=== PATIENT | male | born 1965 | race Caucasian/White ===

== ENCOUNTER 2016-08-13 23:43 | Emergency (ER) | payer BC ==
[~2016-08-13] VITALS: Ht 177.8 cm; Wt 84.0 kg
[~2016-08-13 23:43] MED LIST: LEVO-217 PO
[2016-08-13 23:48] VITALS: TEMP 36.4; O2SAT 94; Ht 177.8 cm; Wt 84.0 kg
[2016-08-14] MEDS ORDERED: SODIUM CHLORIDE 0.9% 1000ML 1,000 ML IV STA ×2 (00:14→01:41)
[2016-08-14 00:23] LABS: HEMATOCRIT 44.6 % (42-52); MEAN CELL VOLUME 89.2 fL (80-100); MEAN CORPUSCULAR HEMOGLOBIN 30.4 pg (25-34); MEAN CORPUSCULAR HGB CONC 34.1 g/dl (32-36); MEAN PLATELET VOLUME 10.2 fL (7.4-10.4); PLATELET COUNT 153 K/uL (130-400); WHITE BLOOD COUNT 5.49 K/uL (4.8-10.8)
[2016-08-14 00:41] LABS: ALT/SGPT 51 U/L (12-78); BLOOD UREA NITROGEN 13 mg/dl (7-18); BUN/CREATININE RATIO 12.6 (10-20); CALCIUM 8.3 mg/dl (8.5-10.1); CARBON DIOXIDE 27 mmol/L (21-32); CHLORIDE 106 mmol/L (98-107); GLUCOSE 104 mg/dl (70-99); MAGNESIUM 2.4 mg/dl (1.8-2.4); POTASSIUM 3.8 mmol/L (3.5-5.1); SODIUM 141 mmol/L (136-145)
[2016-08-14 00:52] LABS: ALB/GLOB RATIO 0.9 (0.9-2); ALKALINE PHOSPHATASE 89 U/L (45-117); AST/SGOT 40 U/L (15-37)
[2016-08-14 01:05] LABS: BASO % 0.2 %; BASO ABS # 0.01 K/uL (0-0.2); COMPLETE YES; EOS % 1.8 %; LYMPH % 59.6 %; LYMPH ABS # 3.27 K/uL (1.2-3.4); MONO % 12.4 %
[2016-08-14 01:55] LABS: MANUAL MICROSCOPIC REQUIRED? NO; REVIEW REQ? NO; URINE APPEARANCE CLOUDY (CLEAR); URINE BILIRUBIN NEG (NEG); URINE COLOR DK YELLOW; URINE NITRITE NEG (NEG); URINE SPECIFIC GRAVITY 1.027 (1.000-1.030); UROBILINOGEN NEG (NEG); ZZUR CULT IF INDIC CLEAN CATCH NO
--- NOTE | 2016-08-14 02:38 | EMERGENCY ROOM VISIT NOTE ---
History First contact with patient: 00:03 Chief Complaint: SYNCOPE Stated Complaint: SYNCOPE, NEAR SYNCOPE Nursing Triage Summary: Patient presents to B05 via wheelchair from room B06 in the ED. Patient reports that he has had "a headache, sore throat, lower back pain, diarrhea, a runny nose, a productive cough (yellow sputum)" for three days. Patient has been taking Nyquil for his symptoms and has been using Afrin for his nasal congestion. Patient was here with his son who is an ER patient. While son was getting his IV inserted and his blood drawn, this patient passed out onto the bed. No injury sustained. After waking, this patient felt faint two more times with mild nausea. Skin pale and cool. Patient requested to be seen as a patient. History of Present Illness The patient is a 50 year old male who presents to the Emergency Department by private vehicle. He actually presents emergency department to be with his son who is sick with upper respiratory like symptoms. The patient was watching his son have an IV placed when he became diaphoretic and passed out. He did not fall to ground. He did not strike his head. He was unconscious for a few seconds. He reportedly awoke and felt better. The patient has been sick for the past 4 days. He has had a headache as well as achiness and chills. He has had fevers as well. He isn't utilizing appg-rog-[id number] medications with minimal relief of symptoms. The patient had a cough as well as nausea. He has not vomited. A family member was sick with similar symptoms recently. The patient rates his current discomfort as a 3/10. He denies any current headaches , dizziness, blurry vision, double vision, neck pain/stiffness, chest pain, palpitations, shortness of breath, nausea, vomiting, or dysuria. Review of Systems A complete 10-point Review of Systems was discussed with the patient, with pertinent positives and negatives listed in the History of Present Illness. All remaining Review of Systems questions can be considered negative unless otherwise specified. Social History Smoking Status: Never Smoker Smokeless Tobacco Use: No Alcohol Use: none Drug Use: none Marital Status: Housing Status: lives with family Occupation Status: employed Current/Historical Medications Scheduled Levothyroxine (Levothroid), 88 MCG PO DAILY Allergies Coded Allergies: Hydroxyzine (Unverified Allergy, Intermediate, SEVERE BRADYCARDIA, 08/14/16) Physical Exam Vital Signs Date Time Temp Pulse Resp B/P Pulse Ox O2 Delivery O2 Flow Rate FiO2 08/14/16 02:52 64 18 99/54 97 08/14/16 01:44 64 18 102/60 100 Room Air 08/14/16 00:25 55 08/13/16 23:48 52 16 89/66 94 Room Air 51 100/65 62 93/76 08/13/16 23:48 94 Room Air 08/13/16 23:48 36.4 53 16 99/68 94 Room Air Pain Rating (0-10): 4 Physical Exam VITAL SIGNS - Vital signs and nursing notes were reviewed. GENERAL - 50-year-old male appearing his stated age who is in no acute distress. Communicates well with provider and answers questions appropriately. HEAD - NC/AT. EYES - PERRL with EOMI bilaterally. Sclera anicteric. Palpebral conjunctiva pink and moist with no injection noted. EARS - No deformities of external structures noted on gross examination bilaterally. No pain elicited with palpation of the tragus bilaterally. External auditory canals without discharge or otorrhea. Tympanic membranes pearly lou without retraction or bulging. No fluid or purulent material visualized behind the TM. Handle of malleus, umbo, cone of light, pars tensa/ flaccid all easily visualized. NOSE - Midline and without cyanosis. No epistaxis or purulent drainage noted. Septum midline without deviation or septal hematoma noted. MOUTH/OROPHARYNX - Without perioral cyanosis. Buccal mucosa pink and moist and without leukoplakia. Tongue midline with equal elevation of palate bilaterally. No tonsillar hypertrophy, erythema, or exudates noted. Good dentition noted. NECK - Neck with FROM. Supple to palpation. No nuchal rigidity. LUNGS - Chest wall symmetric without accessory muscle use, intercostals retractions, or central cyanosis. Normal vesicular breath sounds CTA B/L. No wheezes, rales, or rhonchi appreciated. CARDIAC - RRR with S1/S2. No murmur, rubs, or gallops appreciated. No reproducible tenderness to palpation appreciated over the anterior chest wall. ABDOMEN - Abdominal contour flat without pulsations or visible masses. BS normoactive all four quadrants. No tenderness, palpable masses, hepatosplenomegaly, or ascites noted. EXTREMITIES - No clubbing or peripheral cyanosis. No pretibial edema present. +3 /5 radial and dorsalis pedis pulses palpated throughout. +5/5 strength noted in UE/LE bilaterally. NEUROLOGIC - Cranial nerves II through XII grossly intact. Sensory intact to light touch throughout. PSYCH - A&Ox3 and cooperates fully with examiner. Pt is very pleasant and interacts well with examiner. Medical Decision & Procedures ER Provider Diagnostic Interpretation: X-ray of the chest was obtained and demonstrates no acute cardiopulmonary processes provide interpretation. Radiologist's impression unavailable at the time of dictation. Laboratory Results 08/14/16 00:00 Red Blood Count 5.00, Mean Corpuscular Volume 89.2, Mean Corpuscular Hemoglobin 30.4, Mean Corpuscular Hemoglobin Concent 34.1, Mean Platelet Volume 10.2, Neutrophils (%) (Auto) 26.0, Lymphocytes (%) (Auto) 59.6, Monocytes (%) (Auto) 12.4, Eosinophils (%) (Auto) 1.8, Basophils (%) (Auto) 0.2, Neutrophils # (Auto ) 1.43, Lymphocytes # (Auto) 3.27, Monocytes # (Auto) 0.68, Eosinophils # (Auto ) 0.10, Basophils # (Auto) 0.01 08/14/16 00:00 Test 08/14/16 00:00 08/14/16 00:20 08/14/16 00:25 08/14/16 01:41 White Blood Count 5.49 K/uL (4.8-10.8) Red Blood Count 5.00 M/uL (4.7-6.1) Hemoglobin 15.2 g/dL (14.0-18.0) Hematocrit 44.6 % (42-52) Mean Corpuscular Volume 89.2 fL (80-100) Mean Corpuscular Hemoglobin 30.4 pg (25-34) Mean Corpuscular Hemoglobin Concent 34.1 g/dl (32-36) Platelet Count 153 K/uL (130-400) Mean Platelet Volume 10.2 fL (7.4-10.4) Neutrophils (%) (Auto) 26.0 % Lymphocytes (%) (Auto) 59.6 % Monocytes (%) (Auto) 12.4 % Eosinophils (%) (Auto) 1.8 % Basophils (%) (Auto) 0.2 % Neutrophils # (Auto) 1.43 K/uL (1.4-6.5) Lymphocytes # (Auto) 3.27 K/uL (1.2-3.4) Monocytes # (Auto) 0.68 K/uL (0.11-0.59) Eosinophils # (Auto) 0.10 K/uL (0-0.5) Basophils # (Auto) 0.01 K/uL (0-0.2) RDW Standard Deviation 40.4 fL (36.4-46.3) RDW Coefficient of Variation 12.6 % (11.5-14.5) Immature Granulocyte % (Auto) 0.0 % Immature Granulocyte # (Auto) 0.00 K/uL (0.00-0.02) Red Blood Cell Morphology Unremarkable Anion Gap 8.0 mmol/L (3-11) Est Creatinine Clear Calc Drug Dose 91.3 ml/min Estimated GFR () 101.3 Estimated GFR (Non- 87.4 BUN/Creatinine Ratio 12.6 (10-20) Calcium Level 8.3 mg/dl (8.5-10.1) Magnesium Level 2.4 mg/dl (1.8-2.4) Total Bilirubin 0.6 mg/dl (0.2-1) Aspartate Amino Transf (AST/SGOT) 40 U/L (15-37) Alanine Aminotransferase (ALT/SGPT) 51 U/L (12-78) Alkaline Phosphatase 89 U/L (45-117) Total Creatine Kinase 126 U/L (39-308) Creatine Kinase MB < 0.5 ng/ml (0.5-3.6) Creatine Kinase MB Ratio (0-3.0) Total Protein 7.9 gm/dl (6.4-8.2) Albumin 3.8 gm/dl (3.4-5.0) Globulin 4.1 gm/dl (2.5-4.0) Albumin/Globulin Ratio 0.9 (0.9-2) Lipase 202 U/L (73-393) Thyroid Stimulating Hormone (TSH) 4.480 uIu/ml (0.300-4.500) Bedside Troponin I 0.000 ng/ml (0-0.045) Influenza Type A Antigen POS for Influ A (NEG) Influenza Type B Antigen Neg for Influ B (NEG) Urine Color DK YELLOW Urine Appearance CLOUDY (CLEAR) Urine pH 5.0 (4.5-7.5) Urine Specific [place] 1.027 (1.000-1.030) Urine Protein NEG (NEG) Urine Glucose (UA) NEG (NEG) Urine Ketones NEG (NEG) Urine Occult Blood NEG (NEG) Urine Nitrite NEG (NEG) Urine Bilirubin NEG (NEG) Urine Urobilinogen NEG (NEG) Urine Leukocyte Esterase NEG (NEG) Urine WBC (Auto) 1-5 /hpf (0-5) Urine RBC (Auto) 0-4 /hpf (0-4) Urine Hyaline Casts (Auto) 10-30 /lpf (0-5) Urine Epithelial Cells (Auto) 10-20 /lpf (0-5) Urine Bacteria (Auto) NEG (NEG) Medications Administered Medications (Trade) Dose Ordered Sig/David Route Start Time Stop Time Status Last Admin Dose Admin Sodium Chloride 1,000 ml @ 999 mls/hr Q1H1M STAT IV 08/14/16 00:14 08/14/16 01:14 DC 08/14/16 00:14 999 MLS/HR Sodium Chloride (Nss 1000ml) 1,000 ml @ 999 mls/hr Q1H1M STAT IV 08/14/16 01:41 08/14/16 02:41 DC 08/14/16 01:43 999 MLS/HR Procedure Patient was placed on the campus monitor and monitored throughout the entire extent of their stay. In addition, the patient's pulse oximetry was monitored throughout the entire stay. Any abnormalities or aberrancies were addressed appropriately. ECG Indication: syncope Rate (beats per minute): 57 Rhythm: sinus bradycardia Findings: no acute ischemic change, no ectopy Change: no significant change (from 01/30/2014.) ED Course Patient was seen and evaluated by myself. Orthostatic vital signs were obtained. Labs were drawn, saline lock in place. EKG chest x-rays were obtained. The patient was hydrated with a 2000 mL normal saline bolus. Laboratory results demonstrate no acute leukocytosis, worrisome anemia, or bandemia. The patient has no significant electrolyte abnormalities. Cardiac enzymes were negative. Troponin is negative. EKG and chest x-rays above. Influenza A was positive. The patient was reevaluated and reports feeling much better at this time. The patient was encouraged to follow up with his primary care provider from today's visit. He will utilize symptomatically management for his ongoing symptoms of influenza. He will return for any changing or worsening symptoms. Patient discharged home in good condition. Medical Decision Given the patient's presentation and stated complaints, I did elect to perform the above-mentioned workup. The patient has been sick for the last 4 days. He has no fever at this point. The patient had a syncopal episode which sounds more vasovagal in nature after watching his son have an IV placed. The patient did interestingly test positive for influenza A as well. His chest x-ray and cardiac enzymes are negative. He felt much better after IV fluid hydration. The patient is outside the window for treatment with Tamiflu. He will continue symptomatically management. He'll follow-up with his primary care provider from today's visit. He will return for any changing or worsening symptoms. Patient discharged home afebrile and in good condition. In the evaluation and treatment of this patient, the following differential diagnoses were considered: Pneumonia, bronchitis, viral URI, LA, ASC, Dysrhythmia, Angina, Mediastinitis, GERD, Esophagitis, PE, Pneumonia, Bronchitis , Costochondritis, Rib Fracture, Zoster. Impression Primary Impression: Vasovagal syncope Additional Impression: Influenza A Departure Information Dispostion Home / Self-Care Condition GOOD Referrals Sukhjinder Hartman M.D. (PCP) Patient Instructions A Signature Page, ED Influenza Ch, ED Syncope Vasovagal, [facility] Additional Instructions You have been seen in the emergency department today for vasovagal syncope and influenza A. Drink plenty of fluids and stay well hydrated. For pain control, you can use the following [id number] medicines (if >12 yo): - Regular strength (325mg/tab) Tylenol (acetaminophen) 2 tabs every 4-6 hours as needed. Do not exceed 12 tablets in a 24 hour period. Avoid taking more than 4 grams (4000 mg) of Tylenol per day. This includes any other sources of acetaminophen you may take on a regular basis. - Regular strength (200 mg/tab) Advil (ibuprofen) 1-2 tabs every 4-6 hours as needed. Do not exceed a dose of 3200 mg per day. Please follow-up with your primary care provider from today's visit. Return for any changing or worsening symptoms.
[2016-08-14 02:52] VITALS: BP 99/54; PULSE 64; O2SAT 97
--- NOTE | 2016-08-14 08:13 | DIAGNOSTIC IMAGING REPORT ---
CHEST ONE VIEW PORTABLE HISTORY: syncope COMPARISON: None. FINDINGS: The heart is mildly enlarged. There are slight elevation of the right hemidiaphragm. No focal lung consolidations to suggest pneumonia. No evidence for pulmonary edema. No pleural effusions. No pneumothorax. There is a 5 mm nodule within the left lateral lung base. IMPRESSION: 1. Mild cardiomegaly. 2. Slight elevation of the right hemidiaphragm. 3. A 5 mm nodule at the left lateral lung base. This favors a calcified granuloma given the density. Follow-up nonemergent chest CT can be performed for confirmation on outpatient basis. Electronically signed by: Michael Granados M.D. 08/14/2016 8:11 AM Dictated Date/Time: 08/14/2016 8:09 AM
== END 2016-08-14 02:53 | disposition home or self-care (01) ==
LOC: C.EDB 23:54
DX: R55 Syncope and collapse (principal); J11.1 Influenza due to unidentified influenza virus with other respiratory manifestations

== ENCOUNTER → 2016-08-15 | Outpatient (CLI) | payer BC ==
[~2016-08-15] MED LIST changes: +LEVO88TA3 PO
== END | disposition home or self-care (01) ==
LOC: C.LABSPEC 17:00
PROVIDERS: ATTEND Podiatrist Primary Podiatric Medicine
DX: B35.1 Tinea unguium (principal)

== ENCOUNTER → 2016-12-01 | Outpatient (CLI) | payer BC ==
--- NOTE | 2016-12-01 10:43 | DIAGNOSTIC IMAGING REPORT ---
RIGHT HAND 3 VIEWS CLINICAL HISTORY: Right hand pain. FINDINGS: 3 views of the right hand are obtained. No prior studies are available for comparison at the time of dictation. The skeletal structures are well mineralized. There is contour irregularity of the fifth metacarpal, possibly related to remote trauma. No acute fracture is seen. The joint spaces of the hand are well-maintained. The overlying soft tissues are within normal limits. IMPRESSION: No acute bony abnormality is seen in the right hand. Electronically signed by: Tevin West M.D. 12/01/2016 10:41 AM Dictated Date/Time: 12/01/2016 10:31 AM
== END | disposition home or self-care (01) ==
LOC: C.RDSM 12:24
PROVIDERS: ATTEND Physician Assistant
DX: M79.641 Pain in right hand (principal)

== ENCOUNTER 2017-04-09 13:16 | Emergency (ER) | payer BC ==
[~2017-04-09] VITALS: Ht 179.1 cm; Wt 85.5 kg
[~2017-04-09 13:16] MED LIST changes: -LEVO88TA3 PO
[2017-04-09 13:34] VITALS: TEMP 36.8; Ht 179.1 cm; Wt 85.5 kg
[2017-04-09] MEDS ORDERED: LEVO88TA3 PO (13:56)
--- NOTE | 2017-04-09 14:00 | EMERGENCY ROOM VISIT NOTE ---
ED Visit Note First contact with patient: 13:41 CHIEF COMPLAINT: knee pain HISTORY OF PRESENT ILLNESS: This 51-year-old male patient presents to the emergency department ambulatory after sustaining an injury to the left knee when he started doing squats a few weeks ago and noticed some mild left knee pain but this pain significantly worsened yesterday. The patient states that he was at the [facility] [employer] football game and walking around a lot. He states that he also has plantar fasciitis in the right foot and this causes an antalgic gait. He denies any falls and does not recall any specific injury. The patient denies any other injuries besides their knee. The patient denies swelling or bruising. There is pain over the medial aspect. They rate the pain as sharp and 8/10. The patient states they are able to walk on it. No numbness or tingling. No previous injuries to this knee. No ankle, foot or hip pain. REVIEW OF SYSTEMS: A 6 system review of systems was completed with positives and pertinent negatives listed in the HPI. ALLERGIES: Hydroxyzine MEDICATIONS: Levothyroxine PMH: Hypothyroidism, pituitary tumor SOCIAL HISTORY: The patient lives locally. He does not smoke PHYSICAL EXAM: Vital Signs: Reviewed Nurse's notes, vital signs stable. GENERAL : As a 51-year-old male, no acute distress, but appears in pain, well-developed , well-nourished. MENTAL STATUS: Alert, oriented to person place and time, and cooperative. MUSCULOSKELETAL: The left knee is not swollen. There is no ecchymosis. There is no joint effusion present. The patient is tender over the medial aspect. There is medial joint line tenderness. The patella does not subluxate. Range of motion is intact. Strength of the quads and hamstrings is 5/ 5. Heidi's is negative. Aisha's and Anterior Drawer tests are negative for obvious laxity. There is negative for obvious laxity with varus and valgus stressing. The foot and toes are warm and well-perfused. Dorsalis pedis pulse 2+. Sensation to pain and light touch is intact. Capillary refill less than 2 seconds. EMERGENCY DEPARTMENT COURSE: I examined the patient. The patient refused x- rays. I advised the patient that I could not guarantee that his insurance company would cover an emergent MRI of the knee as our treatment outcome would not likely change even if there was a meniscal or ligamentous tear. He would rather not risk the chance of a large bill. The patient had knowledge his understanding and will follow-up with orthopedics. The patient was placed in a knee immobilizer under my direction and the position was satisfactory. The patient was instructed on the use of crutches. The patient was discharged home in good condition. Current/Historical Medications Scheduled Levothyroxine Sodium (Levothyroxine Sodium), 88 MCG PO DAILY Allergies Coded Allergies: Hydroxyzine (Unverified Allergy, Intermediate, SEVERE BRADYCARDIA, 04/09/17) Vital Signs Date Time Temp Pulse Resp B/P (MAP) Pulse Ox O2 Delivery O2 Flow Rate FiO2 04/09/17 14:15 57 109/72 96 04/09/17 13:34 36.8 69 20 126/76 95 Room Air Departure Information Impression Primary Impression: Knee pain Dispostion Home / Self-Care Condition GOOD Referrals Sukhjinder Hartman M.D. (PCP) Carlos Dinh M.D. Patient Instructions Knee Pain, Meniscus Probs [place], [facility] Additional Instructions Motrin 600 mg every 6-8 hours for moderate pain Ice frequently over the next 24-48 hours Wear the immobilizer and use crutches until seen by orthopedics Contact orthopedics first thing Monday to schedule a follow-up appointment for further evaluation and management Return with any worsening symptoms Problem Qualifiers Primary Impression: Knee pain Chronicity: acute Laterality: left Qualified Codes: M25.562 - Pain in left knee
[2017-04-09 14:15] VITALS: BP 109/72; PULSE 57; O2SAT 96
== END 2017-04-09 14:17 | disposition home or self-care (01) ==
LOC: C.EDB 13:21 → C.EDD 14:17
DX: M25.562 Pain in left knee (principal); E03.9 Hypothyroidism, unspecified; Z79.899 Other long term (current) drug therapy

== ENCOUNTER → 2017-04-11 | Outpatient (CLI) | payer BC ==
[~2017-04-11] MED LIST changes: -LEVO-217 PO; +LEVO88TA3 PO
--- NOTE | 2017-04-11 16:48 | DIAGNOSTIC IMAGING REPORT ---
LEFT KNEE 4 OR MORE CLINICAL HISTORY: Left knee pain COMPARISON: None. DISCUSSION: The bones and joint spaces appear intact. There is no evidence of fracture, dislocation or bony disease. The tunnel view is nondiagnostic There is no evidence for soft tissue swelling. IMPRESSION: Negative study. The above report was generated using voice recognition software. It may contain grammatical, syntax or spelling errors. Electronically signed by: Edd Perrin M.D. 04/11/2017 4:47 PM Dictated Date/Time: 04/11/2017 4:46 PM
== END | disposition home or self-care (01) ==
LOC: C.RDSM 15:55
PROVIDERS: ATTEND Physician Assistant
DX: M25.562 Pain in left knee (principal)

== ENCOUNTER → 2017-11-24 | Outpatient (CLI) | payer BC | END | disposition home or self-care (01) | LOC: C.RDSM 18:53 | PROVIDERS: ATTEND Family Medicine Sports Medicine | DX: M25.522 Pain in left elbow (principal) ==